=== PATIENT | female | born 1970 | race Caucasian/White ===

== ENCOUNTER → 2016-07-07 | Outpatient (CLI) | payer SELFPAY | LOC: LAB 10:09 | DX: R19.7 Diarrhea, unspecified (principal) ==

== ENCOUNTER → 2016-07-09 | Outpatient (CLI) | payer SELFPAY | LOC: LAB 08:39 | DX: R19.7 Diarrhea, unspecified (principal) ==

== ENCOUNTER → 2016-07-26 | Outpatient (CLI) | payer SELFPAY | LOC: LAB 10:11 | DX: R19.7 Diarrhea, unspecified (principal) ==

== ENCOUNTER → 2016-10-08 | Outpatient (CLI) | payer SELFPAY | LOC: LAB 16:05 | DX: E83.52 Hypercalcemia (principal); G47.33 Obstructive sleep apnea (adult) (pediatric) ==

== ENCOUNTER → 2017-06-24 | Outpatient (CLI) | payer OTHER ==
[2017-06-24 09:39] LABS: HEMATOCRIT 44.8 % (37.0-47.0); MEAN PLATELET VOLUME 10.2 fl (7.4-10.4); RED BLOOD COUNT 4.9 M/mm3 (4.10-5.30); RED CELL DISTRIBUTION WIDTH 12.5 % (11.5-14.5); WHITE BLOOD COUNT 9.3 K/mm3 (4.8-10.8)
[2017-06-24 09:56] LABS: ALBUMIN 4.7 g/dL (3.5-5.0); BUN/CREATININE RATIO 19.5 (6.0-26.0); TOTAL BILIRUBIN 0.5 mg/dL (0.2-1.3)
[2017-06-25 00:17] LABS: T3 FREE 3.1 pg/mL (1.7-3.7)
== END ==
LOC: LAB 09:24
PROVIDERS: Family Medicine
DX: E03.4 Atrophy of thyroid (acquired) (principal); R73.9 Hyperglycemia, unspecified; Z79.899 Other long term (current) drug therapy

== ENCOUNTER → 2017-09-06 | Outpatient (CLI) | payer OTHER ==
[2017-09-07 02:14] LABS: T3 FREE 2.1 pg/mL (1.7-3.7)
== END ==
LOC: LAB 09:36
PROVIDERS: Family Medicine
DX: E03.4 Atrophy of thyroid (acquired) (principal); E03.8 Other specified hypothyroidism

== ENCOUNTER → 2017-11-15 | Outpatient (CLI) | payer OTHER ==
[2017-11-15 08:18] LABS: ALBUMIN 4.3 g/dL (3.5-5.0); BUN/CREATININE RATIO 18.8 (6.0-26.0); CALCIUM 9.2 mg/dL (8.4-10.2); POTASSIUM 3.6 mmol/L (3.6-5.0); TOTAL BILIRUBIN 0.4 mg/dL (0.2-1.3); TOTAL PROTEIN 7.2 g/dL (6.3-8.2)
[2017-11-15 23:17] LABS: PTH,INTACT 46.2 pg/mL (6.6-88.9); T3 FREE 2.3 pg/mL (1.7-3.7)
== END ==
LOC: LAB 06:47
PROVIDERS: Family Medicine
DX: E03.4 Atrophy of thyroid (acquired) (principal); E03.8 Other specified hypothyroidism; R10.12 Left upper quadrant pain; K43.9 Ventral hernia without obstruction or gangrene; K43.0 Incisional hernia with obstruction, without gangrene; Z79.899 Other long term (current) drug therapy; Z90.89 Acquired absence of other organs

== ENCOUNTER → 2017-11-18 | Outpatient (CLI) | payer OTHER | LOC: RAD 11-14 09:00 | DX: K43.9 Ventral hernia without obstruction or gangrene (principal) | CPT/HCPCS: Q9967 ==

== ENCOUNTER → 2018-02-13 | Outpatient (CLI) | payer OTHER | LOC: RAD 14:23 | DX: R10.2 Pelvic and perineal pain (principal); M25.552 Pain in left hip; M25.551 Pain in right hip; M67.432 Ganglion, left wrist; M25.532 Pain in left wrist; Z98.1 Arthrodesis status ==

== ENCOUNTER 2018-06-02 12:23 | Emergency (ER) | payer OTHER ==
[~2018-06-02] VITALS: Ht 165.1 cm; Wt 89.1 kg
[2018-06-02] MEDS ORDERED: KLONOPIN 1MG1 MG PO (12:33)
[2018-06-02] MEDS ORDERED: VENLAFAXINE HYD25 MG (12:33)
[2018-06-02 13:44] LABS: EOS # 0.1 (0.04-0.40); EOS % 1.3 % (1.0-5.0); HEMATOCRIT 42.1 % (37.0-47.0); HEMOGLOBIN 14.1 g/dL (12.5-16.0); LYMPH# 1.1 (1.50-4.00); MEAN CELL VOLUME 94 fl (78-100); MEAN CORPUSCULAR HEMOGLOBIN 31 pg (27-31); MEAN CORPUSCULAR HGB CONC 34 g/dL (33-37); MEAN PLATELET VOLUME 10.8 fl (7.4-10.4); MONO # 0.6 (0.20-0.80); PLATELET COUNT 266 K/mm3 (130-400); RED BLOOD COUNT 4.49 M/mm3 (4.10-5.30); RED CELL DISTRIBUTION WIDTH 12.1 % (11.5-14.5); WHITE BLOOD COUNT 7.8 K/mm3 (4.8-10.8)
[2018-06-02 13:52] LABS: ALBUMIN 4.2 g/dL (3.5-5.0); CALCIUM 9.7 mg/dL (8.4-10.2); POTASSIUM 3.5 mmol/L (3.6-5.0); TOTAL BILIRUBIN 0.7 mg/dL (0.2-1.3); TOTAL PROTEIN 6.8 g/dL (6.3-8.2)
[2018-06-02] MEDS ORDERED: TAMIFLU 75MG75 MG PO (14:27)
[2018-06-02 14:54] VITALS: BP 117/75
== END 2018-06-02 14:48 | disposition home or self-care (01) ==
LOC: ED 12:23
PROVIDERS: Nurse Practitioner Primary Care
DX: Z20.9 Contact with and (suspected) exposure to unspecified communicable disease (principal); I10 Essential (primary) hypertension; Z88.5 Allergy status to narcotic agent; Z85.038 Personal history of other malignant neoplasm of large intestine; Z98.890 Other specified postprocedural states

== ENCOUNTER → 2018-07-11 | Outpatient (CLI) | payer OTHER ==
[~2018-07-11] MED LIST: KLONOPIN 1MG1 MG PO; TAMIFLU 75MG75 MG PO; VENLAFAXINE HYD25 MG
== END ==
LOC: RAD 15:50
DX: S69.92XA Unspecified injury of left wrist, hand and finger(s), initial encounter (principal)